=== PATIENT | male | born 1935 | race Caucasian/White ===

== ENCOUNTER → 2019-04-26 09:44 | Outpatient (CLI) | payer MEDICARE, OTHER, SELFPAY ==
[2019-04-26 10:16] LABS: BUN Creatinine Ratio 23.6 (6-22); Blood Urea Nitrogen 30 mg/dL (9-20); Estimated Glomerular Filt Rate 54.3 mL/min (>60)
--- NOTE | 2019-04-26 11:08 | DI.CT.S_ITS ---
PROCEDURE: CT ABDOMEN PELVIS W CON INDICATIONS: Crohn's disease of colon, abdominal pain. TECHNIQUE: After the administration of oral Volumen contrast and intravenous contrast, 3 mm thick sections acquired from the diaphragm to the symphysis. Coronal and sagittal 3 mm reformatted images acquired through the small and large bowel. For radiation dose reduction, the following was used: automated exposure control, adjustment of mA and/or kV according to patient size. COMPARISON: None. FINDINGS: Image quality: There is mild motion artifact. ABDOMEN: Lung bases: There is minimal dependent atelectasis. Heart size is normal. Bowel and peritoneum: There is mild gastric wall thickening and mucosal enhancement in the antrum. Small bowel loops demonstrate normal wall thickness and caliber. No small bowel wall thickening, mucosal enhancement, or inflammatory fat stranding to suggest active small bowel inflammatory changes. A medial duodenal diverticulum is noted. Colon loops are also normal in caliber and wall thickness without evidence of active inflammatory changes. No discrete fistulas or ulcers. No free fluid or air. No abscess collections. Solid organs: Evaluation of the liver demonstrates no focal hepatic lesions. The gallbladder appears within normal limits without calcified gallstones. Biliary system is non-dilated. Pancreas enhances normally. No peripancreatic fat stranding or fluid collections. No pancreatic duct dilatation. The spleen is normal in size. No adrenal nodules. Kidneys demonstrate no hydronephrosis. Nodes and vessels: No retroperitoneal or mesenteric adenopathy by size criteria. Aorta and inferior vena cava are normal in caliber. Miscellaneous: No ventral hernias. PELVIS: Genitourinary: There is mild trabeculation of the bladder wall. There is a small oval intraluminal filling defect within the right posterior aspect of the bladder measuring up to 1.0 x 0.8 cm. 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 Miscellaneous: No inguinal hernias or adenopathy. Bones: No suspicious bony lesions. No vertebral body compression fractures. No findings to suggest sacroiliitis. Femoral heads demonstrate no findings of advanced avascular necrosis. IMPRESSION: 1. No acute inflammatory changes demonstrated in the small or large bowel. No definite strictures or bowel obstruction. 2. Mild gastric wall thickening and enhancement in the antrum compatible with a nonspecific gastritis. 3. No definite ulcers or fistulas identified to suggest penetrating disease. 4. Oval intraluminal filling defect along the bladder wall. The findings are suspicious for a neoplasm such as transitional cell carcinoma or metastatic disease given history of prostate cancer. Recommend correlation with cystoscopy. Dictated by: Jacob Velez M.D. on 04/26/2019 at 15:50 Approved by: Jacob Velez M.D. on 04/26/2019 at 16:02
== END ==
PROVIDERS: Referring Provider Internal Medicine Gastroenterology; Visit Provider Internal Medicine Gastroenterology
DX: K50.10 Crohn's disease of large intestine without complications (principal); R10.9 Unspecified abdominal pain; Z85.46 Personal history of malignant neoplasm of prostate
CPT/HCPCS: 36415; 74177; 82565; 84520; Q9967

== ENCOUNTER → 2021-06-04 09:16 | Outpatient (CLI) | payer MEDICARE, OTHER, SELFPAY ==
--- NOTE | 2021-06-04 | DI.CT.S_ITS ---
PROCEDURE: CT SINUS SCREEN WO CON INDICATIONS: Chronic pansinusitis TECHNIQUE: Noncontrast 3.0 mm axial images acquired from the frontal sinuses to the mid-sella, with coronal and sagittal reformats. For radiation dose reduction, the following was used: automated exposure control, adjustment of mA and/or kV according to patient size. COMPARISON: None. FINDINGS: Image quality: Excellent. Mild mucosal thickening noted in the right maxillary sinus. No air-fluid levels are identified. The ostiomeatal units are patent bilaterally. No osseous thickening, osseous remodeling or osseous erosive changes. 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 Nasal septum is deviated to the left. No clyde bullosa or paradoxical turbinates. Atherosclerotic calcifications noted in the cavernous segments of the internal carotid arteries. IMPRESSION: Mild right maxillary sinus mucosal thickening. Dictated by: Pushpa Ruiz MD, PhD on 06/04/2021 at 10:18 Approved by: Pushpa Ruiz MD, PhD on 06/04/2021 at 10:21
== END ==
PROVIDERS: Referring Provider Otolaryngology; Visit Provider Otolaryngology
DX: J32.4 Chronic pansinusitis (principal)
CPT/HCPCS: 70486